=== PATIENT | female | born 1990 | race Caucasian/White ===

== ENCOUNTER 2016-10-05 19:01 | Inpatient (IN) | payer MEDICAID ==
--- NOTE | ~2016-10-05 | DS ---
Unit #: [id number] #: [id number] Patient: ELVIRA MAS [id number] [facility] [address] [place] [address] [id number] MR#: [id number] NAME: ELVIRA MAS. ROOM: P176 Age: 26 Sex: F Admission Date: 10/05/2016 : 1990 Discharge Date: 10/10/2016 Attending Physician: Laura Yu M.D. Primary Care Physician: Primary Care Physician No DISCHARGE SUMMARY IDENTIFYING DATA Ms. Celaya is a 26-year-old single white female, who is a resident of [place], [place] and was self-referred to the hospital on a voluntary basis. DISCHARGE DIAGNOSES Psychiatric: Major depressive disorder, recurrent, moderate, without psychotic features; opioid dependence, moderate, in acute withdrawals; methamphetamine abuse, moderate; and benzodiazepine abuse, moderate. Medical: History of withdrawal seizures, human papilloma virus, cervical dysplasia, and pelvic inflammatory disease. Stressors: Moderate psychosocial stressors. HISTORY OF PRESENT ILLNESS Please see initial psychiatric evaluation for details. PAST PSYCHIATRIC HISTORY Please see initial psychiatric evaluation for details. PAST MEDICAL HISTORY Please see initial psychiatric evaluation for details. HOSPITAL COURSE The patient was admitted to the adult chemical dependency unit at [facility] and was oriented to the hospital environment. Routine p.r.n. medications were initiated, and she was started back on her home medications and medications were adjusted and detox protocol was initiated. However, the patient was seen to be in acute distress and discomfort and was unkempt and disheveled and unable to get out of the bed and perform activities of daily living or go to therapy groups, and soon afterward, she started pushing to leave and apparently her boyfriend was also in the treatment in the same hospital and he was leaving; therefore, she lost motivation and was yelling, screaming, cursing, using F words and profanity, and was pushing to leave and as such, it was decided that she will be discharged from the program. DISCHARGE MEDICATIONS None. DISCHARGE CONDITION Stable. PROGNOSIS Unit #: [id number] #: [id number] Patient: ELVIRA MAS Guarded. Dictated by... Laura Yu M.D. IAA/modl TD: 10/10/2016 19:21 JOB #: [id number] DISCHARGE SUMMARY Page 1 of 1 X Laura Yu MD DISCHARGE SUMMARY
--- NOTE | ~2016-10-05 | PN ---
Unit #: [id number] #: [id number] Patient: ELVIRA PARKER [id number] [facility] [address] [place] [address] [id number] I MR#: [id number] NAME: ELVIRA PARKER. ROOM: P176 Age: 26 Sex: F Admission Date: 10/05/2016 : 1990 Attending Physician: Laura Yu M.D. Admitting Physician: Laura Yu M.D. Primary Care Physician: Primary Care Physician Mimi BLANCA PROGRESS NOTES DATE 10/08/2016 DISCUSSION Ms. Parker is a 26-year-old white female who was seen today and chart was reviewed and case was discussed with the staff. She has been anxious, withdrawn, unkempt, disheveled and seclusive to herself. Once again laying in the bed refusing to eat breakfast, stating that she has not been feeling good and has been in distress and discomfort. Meanwhile, she has been taking medications and tolerating them fairly well with no reported side effects. MENTAL STATUS EXAMINATION Young white female who was casually dressed with fair personal hygiene and appears to be in no acute distress or discomfort. She was awake and alert on interaction with intact orientation. Her mood was anxious with congruent affect. She denies any suicidal or homicidal ideations. Her insight and judgement remains slightly impaired. TREATMENT PLAN 1. Will continue on current medications and treatment protocol. Will monitor her response to medications and make further adjustments as needed. 2. Will continue to follow up. Dictated by... Jovanni Mendenhall/lisbet TD: 10/09/2016 23:06 JOB #: [id number] Unit #: [id number] #: [id number] Patient: ELVIRA PARKER ANTONANUP PROGRESS NOTES Page 1 of 1 X Laura Yu MD X PROGRESS NOTE
--- NOTE | ~2016-10-05 | PN ---
Unit #: [id number] #: [id number] Patient: JACQUIE PARKER [id number] [facility] [address] [place] [address] [id number] MR#: [id number] NAME: JACQUIE PARKER. ROOM: P176 Age: 26 Sex: F Admission Date: 10/05/2016 : 1990 Attending Physician: Laura Yu M.D. Admitting Physician: Laura Yu M.D. Primary Care Physician: Mimi Primary Care Physician RIANNA PROGRESS NOTES DATE 10/07/2016. DISCUSSION Jacquie Parker is a 26-year-old white female who was seen today and chart was reviewed. The patient was discussed with the nursing staff. The patient is not in acute distress. She has been kicking her legs, moaning and groaning in the bed. She has not been able to take care of her personal hygiene. She has made the comment that she is feeling worse and that she is taking all the medicine and she is not getting any better. The staff reports that she had a rough night last night. MENTAL STATUS EXAMINATION Young white female who was casually dressed. Her hygiene appears to be a major distressor. She was awake and alert. Her (1) anxious but calm. She denies any suicidal or homicidal ideation. Insight and judgment are impaired significantly. TREATMENT PLAN 1. Will continue current medications and treatment protocol. Will monitor her response to the medication and make further adjustments as needed. 2. We will continue to (2) . Dictated by... Laura Yu M.D. IAA/gz TD: 10/08/2016 10:37 JOB #: [id number] Unit #: [id number] #: [id number] Patient: JACQUIE PARKER PEAANUP PROGRESS NOTES Page 1 of 1 X Laura Yu MD PROGRESS NOTE
--- NOTE | ~2016-10-05 | PA ---
Unit #: [id number] #: [id number] Patient: ELVIRA PARKER [id number] [place] [address] [id number] MR#: [id number] NAME: ELVIRA PARKER. ROOM: P176 Age: 26 Sex: F Admission Date: 10/05/2016 : 1990 Date of Assessment: 10/06/2016 Attending Physician: Laura Yu M.D. Admitting Physician: Laura Yu M.D. Primary Care Physician: Primary Care Physician No PSYCHIATRIC ASSESSMENT DATE OF SERVICE 10/06/2016 IDENTIFYING DATA Ms. Parker is a 26-year-old single white female, who is a resident of [place], [place], and was self-referred to the hospital on a voluntary basis. CHIEF COMPLAINT "I'm here to detox. I've had suicidal thoughts and never had that before." HISTORY OF PRESENT ILLNESS Ms. Parker is a 26-year-old white female, who was self-referred to the hospital reporting history of substance abuse, depression, and suicidal thoughts. "Also I think I've bipolar." The patient reports that she has been using a gram a day of IV heroin as well as intermittently benzodiazepines and methamphetamine. Reports that she gets Suboxone off the street. The patient cannot obtain heroin and reports that she has significant consequence because of her addiction and she wants to be retested for hepatitis due to recent ER visit and she was told liver enzymes are elevated. Her 8-year-old daughter is in custody of the patient's parents and she does report increasing depression, anxiety, irritability, restlessness, poor energy level, psychomotor retardation, feelings of hopelessness and helplessness, and suicidal ideations. SUBSTANCE ABUSE HISTORY The patient reports history of alcohol, cannabis, opioids, and amphetamine abuse, and currently opioids, particularly IV heroin has been her drug of choice and she reports that she has been using up to a gram of IV heroin a day, but also has been using methamphetamine and benzodiazepines quite regularly. PAST PSYCHIATRIC HISTORY The patient has a history of inpatient psychiatric and chemical dependency treatments at [facility], and [facility]. Review of the medical records indicate currently she is not active in any treatment program, is not seeing a psychiatrist, not taking any psychotropic medications. PAST MEDICAL HISTORY Significant for history of withdrawal seizures, human papilloma virus, cervical dysplasia, pelvic inflammatory disease. Unit #: [id number] #: [id number] Patient: ELVIRA PARKER ALLERGIES No known medication allergies. PERSONAL AND SOCIAL HISTORY A 26-year-old white female, who reports that she is single, unemployed, and does not have custody for 8 years old child and describes herself to be homeless and she has unstable housing situation. MENTAL STATUS EXAMINATION Young white female, who was casually dressed with fair personal hygiene, appears to be in no acute distress or discomfort. She was awake, alert on interaction with intact orientation to time, place, and person. Her mood was anxious and depressed with a congruent affect. Her speech was slow and goal directed. She reports having suicidal ideations, but denies any homicidal ideations, and also denies any auditory or visual hallucinations. Her insight and judgment remain significantly impaired. DIAGNOSTIC IMPRESSION Psychiatric: Major depressive disorder, recurrent, moderate, without psychotic features; opioid dependence, moderate and acute withdrawals; methamphetamine abuse, moderate; benzodiazepine abuse, moderate. Medical: History of withdrawal seizures, human papilloma virus, cervical dysplasia, pelvic inflammatory disease. Stressors: Moderate psychosocial stressors. TREATMENT PLAN 1. The patient has a history of substance abuse and mood disorder, and has been decompensating and will need inpatient hospitalization for safety, stabilization, and detoxification. We will start her back on her home medications. We will adjust the medications and monitor response. 2. Supportive therapy was provided to the patient. 3. Safe, structured, and nourishing environment will be provided. ESTIMATED LENGTH OF STAY 4 to 5 days. ABILITY TO HELP SELF Limited. WILLINGNESS TO HELP SELF The patient appears to be willing to help self. STRENGTHS 1. Communicative. 2. Cooperative. PROBLEMS 1. Chronic dysphoric symptoms. 2. Poor social support system. DISCHARGE CRITERIA This will be contingent upon the patient's ability to go through detox without having any significant withdrawal symptoms as well as her ability to stay safe to herself, particularly after discharge from the hospital. Dictated by... Laura Yu M.D. Unit #: [id number] #: [id number] Patient: ELVIRA PARKER IAA/modl TD: 10/06/2016 07:20 JOB #: [id number] PSYCHIATRIC ASSESSMENT Page 1 of 1 X Laura Yu MD PSYCHIATRIC ASSESSMENT
--- NOTE | ~2016-10-05 | PN ---
Unit #: [id number] #: [id number] Patient: ELVIRA PARKER [id number] [facility] [address] [place] [address] [id number] MR#: [id number] NAME: ELVIRA PARKER. ROOM: P176 Age: 26 Sex: F Admission Date: 10/05/2016 : 1990 Attending Physician: Laura Yu M.D. Admitting Physician: Laura Yu M.D. Primary Care Physician: Primary Care Physician Mimi BLANCA PROGRESS NOTES DATE 10/09/2016 DISCUSSION Ms. Parker is a 26-year-old white female with mood disorder who was seen today and chart was reviewed and case was discussed with the staff. She has been very belligerent and apparently her boyfriend has been leaving the unit and all of a sudden she wants to leave even though she is unkempt, disheveled and has hardly been able to get out of her room much and has been stating that she is still depressed but that she does not want to be here anymore and has been showing very poor insight into her situation. MENTAL STATUS EXAMINATION Young white female who was casually dressed with fair personal hygiene and appears to be in no acute distress or discomfort. She was awake and alert with impaired attention and concentration. Her mood was anxious and depressed with congruent affect. Her speech is slow and goal-directed. She denies any suicidal or homicidal ideations. Her insight and judgement remains slightly impaired. TREATMENT PLAN 1. Will continue on current medications and treatment protocol. Will monitor her response to the medications and make further adjustments as needed. 2. Will continue to follow up. Dictated by... Jovanni Mendenhall/lisbet TD: 10/11/2016 20:57 JOB #: [id number] Unit #: [id number] #: [id number] Patient: ELVIRA PARKERANUP PROGRESS NOTES Page 1 of 1 X Laura Yu MD X PROGRESS NOTE
--- NOTE | ~2016-10-05 | HP ---
Unit #: [id number] #: [id number] Patient: JACQUIE MAS [id number] [place] [address] [id number] MR#: [id number] NAME: JACQUIE MAS. ROOM: P176 Age: 26 Sex: F Admission Date: 10/05/2016 : 1990 Attending Physician: Laura Yu M.D. Admitting Physician: Laura Yu M.D. Primary Care Physician: Primary Care Physician No HISTORY AND PHYSICAL HISTORY OF PRESENT ILLNESS Jacquie is a 26 year old admitted to [facility] because of her continued drug use which includes opioids, benzodiazepines and methamphetamine. She has had other admissions to this facility. PAST MEDICAL HISTORY 1. Long history of polysubstance abuse 2. History of withdrawal seizures PAST SURGICAL HISTORY Nothing reported ALLERGIES No known drug allergies. SOCIAL HISTORY Smokes less than one pack per day. Drinks alcohol on occasion. Admits to a long history of illicit substance abuse to include IV heroin. She also abuses benzodiazepines and meth. FAMILY HISTORY Medically noncontributory. REVIEW OF SYSTEMS CONSTITUTIONAL: No fever or chills. HEENT: Denies any sore throat, ear pain or runny nose. CARDIOVASCULAR: Denies chest pain, irregular heart rhythm or palpitations. CHEST: Denies shortness of breath or cough. No hemoptysis. GASTROINTESTINAL: Denies nausea, vomiting, diarrhea or chronic constipation. ENDOCRINE: Denies history of increased thirst or urination. No recent significant weight loss or gain. GENITOURINARY: Denies dysuria, frequency, or hematuria. SKIN: Denies any rashes. HEMATOLOGIC: Denies history of increased bleeding or bruising. MUSCULOSKELETAL: Denies any hot, swollen joints. No generalized muscle pain. NEUROLOGIC: Denies problems with vision or speech. No frequent, severe headaches. No numbness, tingling or weakness in any extremities. Denies loss of bladder or bowel control. Unit #: [id number] #: [id number] Patient: JACQUIE MAS CURRENT MEDICATIONS 1. Multivitamin 1 q day 2. Phenergan p.r.n. 3. Bentyl p.r.n. 4. Loperamide p.r.n. 5. Motrin p.r.n. 6. Neurontin p.r.n. 7. Catapres p.r.n. 8. Thiamine 100 mg q day 9. Folic acid 1 mg q day PHYSICAL EXAMINATION GENERAL: Alert, well-nourished, in no apparent distress. VITAL SIGNS: Blood pressure 100/36, heart rate 80, respirations 16, temperature 98.6. WEIGHT: 145 pounds. HEIGHT: 5'3". SKIN: Warm and dry without rash. She has multiple small round scab areas especially on her hands, arms and face. There is no increased redness, swelling, heat or pus noted. HEENT: Normocephalic. TMs not viewed. Oral and nasal passages clear. Conjunctivae clear. Pupils equal, round and reactive to light and accommodation. Extraocular movements intact. NECK: Supple without lymphadenopathy or thyromegaly. HEART: Regular rate and rhythm without murmur. LUNGS: Clear. ABDOMEN: Soft, nontender. : Not done. EXTREMITIES: No evidence of cyanosis, clubbing or edema. Moves all extremities without focal deficit. NEUROLOGICAL: Grossly within normal limits. Cranial Nerves: II: Visual jackson are intact. III, IV AND : Extraocular movements are intact. Pupils are equal, round and reactive to light. V: Facial sensation is grossly normal. VII: Facial movements and expression are normal. VIII: Auditory acuity grossly intact. IX, X: Uvula is midline. Phonation is normal. XI: Patient shrugs shoulders and turns head normally. XII: Tongue protrudes in the midline. Sensory and Motor Function: Sensory and motor sensation is grossly normal. Motor: moves all extremities well. Coordination: Gait is normal. Deep Tendon Reflexes: Intact. IMPRESSION 1. Psychiatric admission 2. Multiple scabbed areas noted. These are areas where she picks when she is high. RECOMMENDATIONS PSYCHIATRIC: Per psychiatrist. MEDICAL: I see no contraindications to participating in facility's activities. MEDICAL PROGNOSIS Good. MEDICAL CONDITION Stable. Unit #: [id number] #: [id number] Patient: JACQUIE MAS Dictated by... Cindy Guerra P.A.-C. for Jovanni Enciso/cuauhtemoc TD: 10/07/2016 02:13 JOB #: [id number] HISTORY AND PHYSICAL Page 1 of 1 X Cindy Guerra HISTORY AND PHYSICAL
[~2016-10-05 19:01] MED LIST: BACTRIM DS TABL1 TA1 PO; DOXYCYCLINE HY100 M1 PO; FLAGYL PO; IBUPROFEN PO; IBUPROFEN800 MG PO; MOTRIN600 MG PO; NORCO 5/325 TAB1 TAB PO; PHENERGAN25 MG PO; ULTRAM PO; VIBRAMYCIN100 M1 PO; ZOFRAN ODT4 MG PO; ZOFRAN8 MG PO
[2016-10-06 10:37] LABS: AMPHETAMINE POS (NEG); BARBITURATES NEG (NEG); BENZODIAZEPINES NEG (NEG); COCAINE NEG (NEG); MARIJUANA NEG (NEG); OPIATES POS (NEG); TRICYCLIC ANTIDEPRESSANTS NEG (NEG); U METHADONE NEG (NEG)
[2016-10-08 21:57] LABS: HA AB IGM (HEPPAN) Nonreactive (()); HB CORE AB IGM (HEPPAN) Nonreactive (Nonreactive); HB S AG (HEPPAN) Nonreactive (Nonreactive); HEP C AB (HEPPAN) Reactive (Nonreactive)
== END 2016-10-10 08:26 | DRG 885 ==
LOC: P1E 19:01
PROVIDERS: Psychiatry & Neurology Psychiatry
PROC: HZ2ZZZZ Detoxification Services for Substance Abuse Treatment (ICD-10-PCS; principal; 2016-10-05)
DX: F33.1 Major depressive disorder, recurrent, moderate (principal); F11.23 Opioid dependence with withdrawal; T14.91 Suicide attempt; F15.10 Other stimulant abuse, uncomplicated; F13.10 Sedative, hypnotic or anxiolytic abuse, uncomplicated; F17.210 Nicotine dependence, cigarettes, uncomplicated
CPT/HCPCS: 80074; 80307; 84703; 87522